=== PATIENT | female | born 1970 | race Caucasian/White ===

== ENCOUNTER 2016-05-28 19:59 | Emergency (ER) | payer OTHER ==
--- NOTE | 2016-05-28 23:10 | DIAGNOSTIC IMAGING REPORT ---
PROCEDURE: CTA THORAX WITH CONTRAST INDICATION: PULMONARY EMBOLUS TECHNIQUE: 96 ml of Isovue 370 was injected intravenously and axial images were obtained of the chest with 3D sagittal and coronal MIP reconstructions. COMPARISON: None. FINDINGS: Normal opacification of the pulmonary arterial tree without filling defect. There is a right IJ central venous catheter in place. The main pulmonary outflow tract is enlarged measuring 3.8 cm in transverse diameter. Thoracic aorta is normal caliber. The great vessels demonstrate a normal branching pattern. Heart size is normal. No pericardial effusion. Mild right hilar soft tissue thickening suggestive of adenopathy. No axillary, supraclavicular, or mediastinal adenopathy. No mediastinal masses. The esophagus is normal in caliber without hiatal hernia. There are surgical changes of a gastric bypass at the GE junction. The thyroid gland is normal. Moderate peribronchial thickening in the right hilum and right lower lobe. There are posterior right lower lobe pleural-based and subpleural rounded parenchymal nodular densities amidst diffuse patchy ground-glass opacity throughout the lower lobe parenchyma bilaterally, right much worse than left. No pleural effusion. The airway is patent and branches normally. Osseous structures are intact. 2 cm cystic structure in the right posterior lobe of the liver. Mild splenomegaly, 13.6 cm. Mildly increased amount of retained stool. IMPRESSION: 1. No pulmonary embolus. 2. Findings of right lower lobe bronchitis and bilateral pneumonitis suggestive of bronchopneumonia. Mild reactive right hilar adenopathy. 3. Enlarged main pulmonary outflow tract raising possibility of chronic pulmonary artery hypertension. Correlate clinically. 4. Prior gastric bypass. 5. Mild splenomegaly and indeterminate cystic structure in the right lobe of the liver. Correlate with the recent cross-sectional imaging. 6. Findings called to the emergency room.
--- NOTE | 2016-05-28 23:12 | DIAGNOSTIC IMAGING REPORT ---
PROCEDURE: XR CHEST 2 VIEW INDICATION: SHORTNESS OF BREATH TECHNIQUE: Two views. COMPARISON: None. FINDINGS: The cardiomediastinal contour and central vasculature are within normal limits. Right IJ Mediport in place. The lungs demonstrate mild right lower lobe peribronchial thickening and parenchymal irregularity along the right lung base without a large consolidation. Wispy strandy changes are also seen at the left lung base. The upper lungs are normally aerated. No effusion or pneumothorax. The visualized osseous structures are intact. Surgical clips in the gallbladder fossa. IMPRESSION: 1. Peribronchial thickening and minor right lower lung parenchymal changes. 2. Right Mediport.
--- NOTE | 2016-05-28 23:26 | ED CLINICAL REPORT ---
Clinical Report - Physicians/Mid Levels [facility] [address] [place] [address] 05/28/2016 20:01 Patient: RADHA CHAHAL Time Seen: 2029. Arrived- By private vehicle. Historian- patient. HISTORY OF PRESENT ILLNESS Chief Complaint: COUGH. No sore throat or nasal discharge. (Patient reports undergoing recent treatment for pneumonia, with 2 rounds of antibiotics, recently finished azithromycin 1 day previously, was previously seen at [place] about 2 weeks previously diagnosed with pneumonia, and consequently had a follow-up with her primary care provider, and was given additional antibiotics. The cough has persisted. Otherwise she has no arthralgias myalgias, fatigue or fevers. Nonproductive cough. No history of hemoptysis. Denies any history of PE or DVT. Patient is currently undergoing care for cancer, recent chemotherapy finished in February, awaiting radiation therapy within the next 1-2 weeks.). REVIEW OF SYSTEMS No vomiting or pedal edema. All systems otherwise negative, except as recorded above. PAST HISTORY Problems: Anemia. Back Pain. Anxiety Reaction. Depression. PTSD. Fibromyalgia. Sciatica. Herniated Disk. Non-Hodgkin's lymphoma (clinical). MRSA Infection [Resolved]. Additional Surgeries: Cholecystectomy. . Gastric Resection. Tubal Ligation. Medications: B-12 Oral. Multivitamins Oral. Iron Oral. Topiramate Oral 100 mg, 2x a day. ClonazePAM Oral 0.5 mg, 2x a day. TiZANidine HCl Oral 4 mg, 3x a day. Amitriptyline HCl Oral 100 mg, daily. FLUoxetine HCl Oral 60 mg, daily. Gabapentin Oral 800 mg, 3x a day. Naproxen Oral 500 mg, 2x a day. Allergies: Effexor. OxyContin. Trazodone . SOCIAL HISTORY Never smoker. No alcohol use or drug use. ADDITIONAL NOTES The nursing notes have been reviewed. PHYSICAL EXAM Vital Signs: 05/28/2016 20:10 BP: 144/112. HR: 73. RR: 20. O2 saturation: 100%. Temp: 98.3 F. Pain level now: 0/10. Appearance: Alert. No acute distress. ENT: Pharynx normal. Uvula midline. Neck: Normal inspection. No lymphadenopathy. CVS: Normal heart rate and rhythm. Heart sounds normal. No decreased pulses. Respiratory: No respiratory distress. Breath sounds normal. No accessory muscle use, splinting or decreased breath sounds. Abdomen: Soft. No abdominal tenderness or guarding. Skin: Normal skin color. Neuro: Oriented X 3. LABS, X-RAYS, AND EKG Chest X-ray: (IMPRESSION: 1. Peribronchial thickening and minor right lower lung parenchymal changes. 2. Right Mediport. Electronically Final signed by:Fabiola Goyal MD 05/28/2016 11:13:10 PM). Chest CT: (CTA IMPRESSION: 1. No pulmonary embolus. 2. Findings of right lower lobe bronchitis and bilateral pneumonitis suggestive of bronchopneumonia. Mild reactive right hilar adenopathy. 3. Enlarged main pulmonary outflow tract raising possibility of chronic pulmonary artery hypertension. Correlate clinically. 4. Prior gastric bypass. 5. Mild splenomegaly and indeterminate cystic structure in the right lobe of the liver. Correlate with the recent cross-sectional imaging. 6. Findings called to the emergency room. Electronically Final signed by:Fabiola Goyal MD 05/28/2016 11:11:19 PM). Laboratory Tests: CBC w Diff: (YISSEL: 05/28/2016 21:10) ( MsgRcvd 05/28/2016 21:22) Final results Test Result Flag Units (Reference) WHITE BLOOD COUNT 6.2 K/uL (4.5-11.5) RED BLOOD COUNT 2.96 L M/uL (4.00-5.20) HEMOGLOBIN 8.9 L gm/dL (12.0-16.0) HEMATOCRIT 27.1 L % (36.0-46.0) MEAN CELL VOLUME 92 fL (80-100) MEAN CORPUSCULAR HGB 30 pg (26-34) MEAN CORPUSCULAR HGB CONC 33 g/dL (31-37) RED CELL DISTRIBUTION WIDTH 14.9 H % (11.6-14.8) PLATELET COUNT 323 K/uL (150-400) NEUTROPHIL % 64.5 % (50-75) LYMPH % 20.0 L % (25-40) MONO % 8.6 % (3-14) EOSINOPHIL % 6.3 H % (0-4) BASOPHIL % 0.6 % (0-2) [id number]: (YISSEL: 05/28/2016 21:10) ( MsgRcvd 05/28/2016 21:29) Final results Test Result Flag Units (Reference) D-DIMER QUANTITATIVE 0.58 H ug/mLFEU (0.27-0.52) The primary value of this quantitative assay relates toits negative predictive value (i.e. exclusion) of pulmonaryembolism/deep vein thrombosis/DIC.Elevated levels of d-dimer may also occur with:, age, cancer, inflammation, liver disease,post-op, infection, hematoma, coronary disease, peripheralarteriopathy, bleeding disorders and thrombolytic treatment.Results should be correlated with other clinical andradiological data.Testing Methodology: Latex Immunoassay CMP: (YISSEL: 05/28/2016 21:10) ( MsgRcvd 05/28/2016 21:37) Final results Test Result Flag Units (Reference) GLUCOSE 95 mg/dL (70-110) BUN 28 H mg/dL (7-18) CREATININE 0.8 mg/dL (0.6-1.3) Estimated GFR >60 mL/min Estimated GFR- >60 mL/min Note: Persistent reduction over 3 months in eGFR<60 mL/min/1.73 m2 defines CKD. Patients with eGFR values>=60 mL/min/1.73 m2 may also have CKD if evidence ofpersistent proteinuria. Additional information may be foundat [email or web address].org. SODIUM 143 mmol/L (136-145) POTASSIUM 3.8 mmol/L (3.5-5.1) CHLORIDE 105 mmol/L (98-107) CARBON DIOXIDE 26 mmol/L (21-32) CALCIUM 8.7 mg/dL (8.5-10.1) TOTAL PROTEIN 7.2 g/dL (6.4-8.2) ALBUMIN 3.1 L g/dL (3.3-5.0) BILIRUBIN, TOTAL 0.2 mg/dL (0.0-1.0) ALKALINE PHOSPHATASE 125 H U/L (46-116) AST (SGOT) 28 U/L (15-37) ALT (SGPT) 34 U/L (12-78) . PROGRESS AND PROCEDURES Course of Care: here in the ER is afebrile, with history of anemia, hemoglobin 8.9. Previous records reviewed from [place]. she had right lower lobe pneumonia at that time, was treated with moxiflocxacin on 05/15/2016 , hgb 9.7. NO active signs of bleeding. Pt stable. Discussed case with DR. Cervantes, pt with slight elevation of d-dimer, with ca, will obtain cta to ensure no PE. nonseptic and at this time he be discharged to home care. Patient understands plan. No indication for acute further antibiotic management. 05/28/2016 23:36 BP: 129/76. 05/28/2016 22:48 BP: 131/71. HR: 64. RR: 19. O2 saturation: 96%. Patient is stable. Symptoms better. Differential Diagnosis: I considered viral bronchitis, laryngotracheobronchitis, viral pneumonia, bacterial bronchitis, bacterial pneumonia, mycoplasmal bronchitis, mycoplasmal pneumonia, chlamydial bronchitis, chlamydial pneumonia, bronchospasm, allergic bronchospasm, irritant bronchospasm, lung cancer, pulmonary embolism, adverse drug reaction and psychogenic etiology as a possible cause of cough in this patient. This is a partial list of diagnoses considered. Disposition: Discharged. Condition: good. CLINICAL IMPRESSION Acute bronchitis. INSTRUCTIONS Drink plenty of fluids. Prescription Medications: Robitussin A-C cough syrup take one (1) teaspoon orally every 6 hours as needed for cough for 3 days. Dispense sixty (60) mL. No refill. Substitution is permissible. Tylenol with Codeine Liquid, 12 mg / 120 mg / 5 mL: take 1-2 teaspoons every 6 hours. Dispense ninety (90) mL. One refill. Substitution is permissible. Follow-up: Follow up with your doctor in three. Understanding of the discharge instructions verbalized by patient. (Electronically signed by Alida Capps P.A.-C 05/29/2016 0:46)
--- NOTE | 2016-05-28 23:26 | ED ORDER SUMMARY ---
..... Patient: RADHA CHAHAL OrderSheet [facility] VisitID: [id number] [place] [address] 45y, F Registration Date/Time: 05/28/2016 ORDER SHEET Weight: 113.3 kg (stated) Allergies: OxyContin, Trazodone , Effexor GENERAL ORDERS: Chest 2V Urgent (20:40 05/28/2016 EKoroleva P.A.-C) (Ack 20:42 SRedmond) (20:51 DDavis R.N.) CBC w Diff Urgent (20:41 05/28/2016 EKoroleva P.A.-C) (Ack 20:42 SRedmond) (20:51 DDavis R.N.) CMP Urgent (20:41 05/28/2016 EKoroleva P.A.-C) (Ack 20:42 SRedmond) (20:51 DDavis R.N.) D-Dimer Urgent (20:41 05/28/2016 EKoroleva P.A.-C) (Ack 20:42 SRedmond) (20:51 DDavis R.N.) CTA Thorax w Cont (No) (see lab) Urgent (21:52 05/28/2016 EKoroleva P.A.-C) (Ack 21:53 SRedmond) (22:19 AMcQuoid ER Tech1) MEDICATION ORDERS: IV FLUIDS: IV NS : initial bolus 1000 mL (1000 mL/hr), then 500 mL/hr for X1 (NOW); Tae (20:40 05/28/2016 EKoroleva P.A.-C) (21:17 DDavis R.N.) Heparin Lock Flush IV 10 unit/mL (NOW) (23:33 05/28/2016 HSoule per protocol) (Ack 23:34 HSoule) (Cancelled: Other23:34 LSullivan R.N.) Heparin Lock Flush IV 100 unit/mL (NOW) (23:35 05/28/2016 LSullivan R.N. per protocol) (23:42 DDavis R.N.) ORDER SHEET NOTES: [Electronically signed by Drew Brothers R.N. (23:44 05/28/2016)] [Electronically signed by Alida Capps P.A.-C (00:46 05/29/2016)] [Electronically locked/signed by Drew Brothers R.N. (23:44 05/28/2016)]
--- NOTE | 2016-05-28 23:26 | ED NURSING NOTES ---
Clinical Report - Nurses [facility] [address] [place] [address] 05/28/2016 20:01 Patient: RADHA CHAHAL TRIAGE Triage time 20:17. Acuity: LEVEL 3. Chief Complaint: (cough and increasing SOB for 2 weeks). --20:22 Drew Brothers R.N. 20:10 05/28/16. BP: 144/112. HR: 73. RR: 20. O2 saturation: 100% on room air. Temp: 98.3 F (oral). Pain level now: 0/10. --20:22 Drew Brothers R.N. Weight: 113.3 kg stated. Height/Length: 67 inches Per Patient. BMI: 39.2. --20:10 Drew Brothers R.N. Medications Naproxen Oral 500 mg, 2x a day. --20:14 Drew Brothers R.N. Gabapentin Oral 800 mg, 3x a day. --20:15 Drew Brothers R.N. FLUoxetine HCl Oral 60 mg, daily. --20:15 Drew Brothers R.N. Amitriptyline HCl Oral 100 mg, daily. --20:16 Drew Brothers R.N. TiZANidine HCl Oral 4 mg, 3x a day. --20:16 Drew Brothers R.N. ClonazePAM Oral 0.5 mg, 2x a day. --20:16 Drew Brothers R.N. Topiramate Oral 100 mg, 2x a day. --20:16 Drew Brothers R.N. Iron Oral. --20:17 Drew Brothers R.N. Multivitamins Oral. --20:17 Drew Brothers R.N. B-12 Oral. --20:17 Drew Brothers R.N. Allergies OxyContin. --20:11 Drew Brothers R.N. Trazodone . --20:11 Drew Brothers R.N. Effexor. --20:11 Drew Brothers R.N. History Arrived by private vehicle. Historian: patient. Accompanied by family. Primary physician (Dr. Sarah Estevez). Onset. (2 weeks ago). She has had a cough. Treatment [employer]: (Abx as prescribed). PAST MEDICAL HX: No history of diabetes mellitus, hypertension, heart disease or lung disease. Denies current . SOCIAL HX: Never smoker. No alcohol use or drug use. The patient was exposed to MRSA. Has had cough. Mask placed on patient. FALL RISK ASSESSMENT: Fall risk assessment completed. No fall risk identified. NUTRITIONAL RISK ASSESSMENT: The nutritional risk assessment revealed no deficiencies. FUNCTIONAL ASSESSMENT: Functional assessment: no impairments noted. LEARNING NEEDS ASSESSMENT: The learning needs assessment revealed no barriers. --20:22 Drew Brothers R.N. PROBLEMS: Anemia. Back Pain. Anxiety Reaction. Depression. PTSD. Fibromyalgia. Sciatica. Herniated Disk. Non-Hodgkin's lymphoma (clinical). --20:13 Drew Brothers R.N. MRSA Infection [Resolved]. --20:21 Drew Brothers R.N. ADDITIONAL SURGERIES: Cholecystectomy. . Gastric Resection. Tubal Ligation. --20:14 Drew Brothers R.N. Interventions ID and allergy band on patient. To treatment room. --20:22 Drew Brothers R.N. PHYSICAL ASSESSMENT ( pt has port-a-cath in right anterior chest). GENERAL / NEURO / PSYCH: Alert. Oriented X 4. Appears in no acute distress. HEENT: No facial asymmetry noted. Mucous membranes are pink. RESPIRATORY: Mild respiratory distress. Respirations not labored. The patient can speak in full sentences. Chest nontender. ( diminished breath sounds). CVS: Capillary refill less than 2 seconds. Pulses within normal limits. GI / : Abdomen soft and normal bowel sounds. SKIN: Skin intact. Skin is warm and dry. --20:23 Drew Brothers R.N. ( Patient states that she was diagnosed with Pnuemonia 2 weeks ago at her doctor's office, and that she was seen again 1 week ago at her doctor for the same. She states having taken 1 different prescriptions of abx, and states that her cough has worsened since her last Dr visit. she states that the cough is occasionally productive, color of sputum unknown. Denies pain. Denies having other symptoms.). --20:33 Drew Brothers R.N. NURSING PROGRESS NOTES Two patient identifiers checked. Call light placed in reach. Side rails up x 1. Bed placed in lowest position. Brakes of bed on. Patient ready for evaluation- chart flagged. Patient waiting for evaluation. --20:24 Drew Brothers R.N. 21:17 05/28/2016 Site #1 started via IV in the right; one attempt. Blood drawn: rainbow set. Saline lock flushed with saline (port a cath, right anterior chest). --21:17 Drew Brothers R.N. 21:17 05/28/2016 Started bag #1 1000 mL IV Fluids IV NS (Saline); bolus of 1000 mL over 1 hour(s) via site #1 --21:17 Drew Brothers R.N. ( POrt was accessed using sterile technique and labs drawn and sent to lab. Patient calm.). --21:25 Drew Brothers R.N. 22:48 05/28/16. BP: 131/71. HR: 64. RR: 19 (regular and unlabored). O2 saturation: 96% on room air. --22:48 Drew Brothers R.N. ( Rounding on patient. informed them of expected result wait times and performed rounding.). --22:49 Drew Brothers R.N. 23:36 05/28/2016 HEPARIN LOCK FLUSH (Heparin (Porcine) Lock Flush) IVP 100 unit given. via site #1. Allergies verified and confirmed 5 rights. IV patency established site checked: no pain, redness, or swelling. IVP given by RN. --23:42 Drew Brothers R.N. DISPOSITION / DISCHARGE 23:38 05/28/2016 Site #1 removed upon discharge. Bandaid applied. --23:43 Drew Brothers R.N. Condition at departure: stable. The goals identified in the patient's plan of care were met. No learning barriers present. Discharge instructions provided and reviewed with the patient. Reviewed medication(s). Reviewed referrals. Patient verbalized understanding. Written instructions provided in Latvian. The patient was discharged home and accompanied by head custodian. She left the Emergency Department ambulatory and via private vehicle. Posting Clerk driving. --23:43 Drew Brothers R.N. 23:36 05/28/16. BP: 129/76. --23:43 Drew Brothers R.N. 23:36 discharge. --23:44 Drew Brothers R.N. Locked/Released at 05/28/2016 23:44 by Drew Brothers R.N.
--- NOTE | 2016-05-28 23:26 | ED NURSING NOTES ---
Clinical Report - Nurses [facility] [address] [place] [address] 05/28/2016 20:01 Patient: RADHA CHAHAL TRIAGE Triage time 20:17. Acuity: LEVEL 3. Chief Complaint: (cough and increasing SOB for 2 weeks). --20:22 Drew Brothers R.N. 20:10 05/28/16. BP: 144/112. HR: 73. RR: 20. O2 saturation: 100% on room air. Temp: 98.3 F (oral). Pain level now: 0/10. --20:22 Drew Brothers R.N. Weight: 113.3 kg stated. Height/Length: 67 inches Per Patient. BMI: 39.2. --20:10 Drew Brothers R.N. Medications Naproxen Oral 500 mg, 2x a day. --20:14 Drew Brothers R.N. Gabapentin Oral 800 mg, 3x a day. --20:15 Drew Brothers R.N. FLUoxetine HCl Oral 60 mg, daily. --20:15 Drew Brothers R.N. Amitriptyline HCl Oral 100 mg, daily. --20:16 Drew Brothers R.N. TiZANidine HCl Oral 4 mg, 3x a day. --20:16 Drew Brothers R.N. ClonazePAM Oral 0.5 mg, 2x a day. --20:16 Drew Brothers R.N. Topiramate Oral 100 mg, 2x a day. --20:16 Drew Brothers R.N. Iron Oral. --20:17 Drew Brothers R.N. Multivitamins Oral. --20:17 Drew Brothers R.N. B-12 Oral. --20:17 Drew Brothers R.N. Allergies OxyContin. --20:11 Drew Brothers R.N. Trazodone . --20:11 Drew Brothers R.N. Effexor. --20:11 Drew Brothers R.N. History Arrived by private vehicle. Historian: patient. Accompanied by family. Primary physician (Dr. Sarah Estevez). Onset. (2 weeks ago). She has had a cough. 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 PAST MEDICAL HX: No history of diabetes mellitus, hypertension, heart disease or lung disease. Denies current . SOCIAL HX: Never smoker. No alcohol use or drug use. The patient was exposed to MRSA. Has had cough. Mask placed on patient. FALL RISK ASSESSMENT: Fall risk assessment completed. No fall risk identified. NUTRITIONAL RISK ASSESSMENT: The nutritional risk assessment revealed no deficiencies. FUNCTIONAL ASSESSMENT: Functional assessment: no impairments noted. LEARNING NEEDS ASSESSMENT: The learning needs assessment revealed no barriers. --20:22 Drew Brothers R.N. PROBLEMS: Anemia. Back Pain. Anxiety Reaction. Depression. PTSD. Fibromyalgia. Sciatica. Herniated Disk. Non-Hodgkin's lymphoma (clinical). --20:13 Drew Brothers R.N. MRSA Infection [Resolved]. --20:21 Drew Brothers R.N. ADDITIONAL SURGERIES: Cholecystectomy. . Gastric Resection. Tubal Ligation. --20:14 Drew Brothers R.N. Interventions ID and allergy band on patient. To treatment room. --20:22 Drew Brothers R.N. PHYSICAL ASSESSMENT ( pt has port-a-cath in right anterior chest). GENERAL / NEURO / PSYCH: Alert. Oriented X 4. Appears in no acute distress. HEENT: No facial asymmetry noted. Mucous membranes are pink. RESPIRATORY: Mild respiratory distress. Respirations not labored. The patient can speak in full sentences. Chest nontender. ( diminished breath sounds). CVS: Capillary refill less than 2 seconds. Pulses within normal limits. GI / : Abdomen soft and normal bowel sounds. SKIN: Skin intact. Skin is warm and dry. --20:23 Drew Brothers R.N. ( Patient states that she was diagnosed with Pnuemonia 2 weeks ago at her doctor's office, and that she was seen again 1 week ago at her doctor for the same. She states having taken 1 different prescriptions of abx, and states that her cough has worsened since her last Dr visit. she states that the cough is occasionally productive, color of sputum unknown. Denies pain. Denies having other symptoms.). --20:33 Drew Brothers R.N. NURSING PROGRESS NOTES Two patient identifiers checked. Call light placed in reach. Side rails up x 1. Bed placed in lowest position. Brakes of bed on. Patient ready for evaluation- chart flagged. Patient waiting for evaluation. --20:24 Drew Brothers R.N. 21:17 05/28/2016 Site #1 started via IV in the right; one attempt. Blood drawn: rainbow set. Saline lock flushed with saline (port a cath, right anterior chest). --21:17 Drew Brothers R.N. 21:17 05/28/2016 Started bag #1 1000 mL IV Fluids IV NS (Saline); bolus of 1000 mL over 1 hour(s) via site #1 --21:17 Drew Brothers R.N. ( POrt was accessed using sterile technique and labs drawn and sent to lab. Patient calm.). --21:25 Drew Brothers R.N. 22:48 05/28/16. BP: 131/71. HR: 64. RR: 19 (regular and unlabored). O2 saturation: 96% on room air. --22:48 Drew Brothers R.N. ( Rounding on patient. informed them of expected result wait times and performed rounding.). --22:49 Drew Brothers R.N. 23:36 05/28/2016 HEPARIN LOCK FLUSH (Heparin (Porcine) Lock Flush) IVP 100 unit given. via site #1. Allergies verified and confirmed 5 rights. IV patency established site checked: no pain, redness, or swelling. IVP given by RN. --23:42 Drew Brothers R.N. DISPOSITION / DISCHARGE 23:38 05/28/2016 Site #1 removed upon discharge. Bandaid applied. --23:43 Drew Brothers R.N. Condition at departure: stable. The goals identified in the patient's plan of care were met. No learning barriers present. Discharge instructions provided and reviewed with the patient. Reviewed medication(s). Reviewed referrals. Patient verbalized understanding. Written instructions provided in Kyrgyz. The patient was discharged home and accompanied by home care scheduler. She left the Emergency Department ambulatory and via private vehicle. Loan Services Professional driving. --23:43 Drew Brothers R.N. 23:36 05/28/16. BP: 129/76. --23:43 Drew Brothers R.N. 23:36 discharge. --23:44 Drew Brothers R.N. Locked/Released at 05/28/2016 23:44 by Drew Brothers R.N.
--- NOTE | 2016-05-28 23:26 | ED ORDER SUMMARY ---
..... Patient: RADHA CHAHAL OrderSheet [facility] VisitID: [id number] [place] [address] 45y, F Registration Date/Time: 05/28/2016 ORDER SHEET Weight: 113.3 kg (stated) Allergies: OxyContin, Trazodone , Effexor GENERAL ORDERS: Chest 2V Urgent (20:40 05/28/2016 EKoroleva P.A.-C) (Ack 20:42 SRedmond) (20:51 DDavis R.N.) CBC w Diff Urgent (20:41 05/28/2016 EKoroleva P.A.-C) (Ack 20:42 SRedmond) (20:51 DDavis R.N.) CMP Urgent (20:41 05/28/2016 EKoroleva P.A.-C) (Ack 20:42 SRedmond) (20:51 DDavis R.N.) D-Dimer Urgent (20:41 05/28/2016 EKoroleva P.A.-C) (Ack 20:42 SRedmond) (20:51 DDavis R.N.) CTA Thorax w Cont (No) (see lab) Urgent (21:52 05/28/2016 EKoroleva P.A.-C) (Ack 21:53 SRedmond) (22:19 AMcQuoid ER Tech1) MEDICATION ORDERS: IV FLUIDS: IV NS : initial bolus 1000 mL (1000 mL/hr), then 500 mL/hr for X1 (NOW); Tae (20:40 05/28/2016 EKoroleva P.A.-C) (21:17 DDavis R.N.) Heparin Lock Flush IV 10 unit/mL (NOW) (23:33 05/28/2016 HSoule per protocol) (Ack 23:34 HSoule) (Cancelled: Other23:34 LSullivan R.N.) Heparin Lock Flush IV 100 unit/mL (NOW) (23:35 05/28/2016 LSullivan R.N. per protocol) (23:42 DDavis R.N.) ORDER SHEET NOTES: [Electronically signed by Drew Brothers R.N. (23:44 05/28/2016)] [Electronically signed by Alida Capps P.A.-C (00:46 05/29/2016)] [Electronically locked/signed by Drew Brothers R.N. (23:44 05/28/2016)]
--- NOTE | 2016-05-29 00:47 | ED MED RECONCILIATION SUMMARY ---
Patient: RADHA CHAHAL Medication Reconciliation Report [facility] VisitID: [id number] [address] [place] [address] 45y, F Registration Date/Time: 05/28/2016 Weight: 113.3 kg Height/Length: 67 in. BMI: 39.2 ALLERGIES: Effexor, OxyContin, Trazodone The patient's Home Medications are listed below: THE FOLLOWING MEDICATIONS NEED TO BE RECONCILED: Amitriptyline HCl Oral 100 mg, daily B-12 Oral ClonazePAM Oral 0.5 mg, 2x a day FLUoxetine HCl Oral 60 mg, daily Gabapentin Oral 800 mg, 3x a day Iron Oral Multivitamins Oral Naproxen Oral 500 mg, 2x a day TiZANidine HCl Oral 4 mg, 3x a day Topiramate Oral 100 mg, 2x a day The source(s) of the original Home Medication information: Not obtained. The following Medications were given to the patient in the Emergency Department: IV NS IV Fluids bolus 1000 mL over 1 hour(s), administered: 05/28/2016 9:17:00 PM HEPARIN LOCK FLUSH [IVP] IVP 100 unit, administered: 05/28/2016 11:36:00 PM The following Medications were prescribed to the patient: Robitussin A-C cough syrup take one (1) teaspoon orally every 6 hours as needed for cough for 3 days. Dispense sixty (60) mL. No refill. Substitution is permissible. -- Alida Capps, P.A.-Sheila Tylenol with Codeine Liquid, 12 mg / 120 mg / 5 mL: take 1-2 teaspoons every 6 hours. Dispense ninety (90) mL. One refill. Substitution is permissible. -- Alida Capps, P.A.-C
--- NOTE | 2016-05-29 00:47 | ED DISCHARGE INSTRUCTIONS ---
Patient: RADHA CHAHAL General Instructions [facility] VisitID: [id number] [place] [address] 45y, F Registration Date/Time: 05/28/2016 Acute bronchitis. INSTRUCTIONS Drink plenty of fluids. Prescription Medications: Robitussin A-C cough syrup take one (1) teaspoon orally every 6 hours as needed for cough for 3 days. Dispense sixty (60) mL. No refill. Substitution is permissible. Tylenol with Codeine Liquid, 12 mg / 120 mg / 5 mL: take 1-2 teaspoons every 6 hours. Dispense ninety (90) mL. One refill. Substitution is permissible. Follow-up: Follow up with your doctor in three. Understanding of the discharge instructions verbalized by patient. ADDITIONAL INFORMATION Bronchitis, Viral (Adult: No Abx) You have a viral bronchitis. This illness is contagious during the first few days and is spread through the air by coughing and sneezing, or by direct contact (touching the sick person and then touching your own eyes, nose, or mouth). Most viral illnesses resolve within 10-14 days with rest and simple home remedies, although they may sometimes last for several weeks. Antibiotics will not kill a virus and are generally not prescribed for this condition. Home Care: If symptoms are severe, rest at home for the first 2-3 days. When resuming activity, don't let yourself become overly tired. Do not smoke and avoid the smoke of others. You may use acetaminophen (Tylenol) or ibuprofen (Motrin, Advil) to control fever or pain, unless another pain medicine was prescribed. [NOTE: If you have chronic liver or kidney disease or ever had a stomach ulcer or GI bleeding, talk with your doctor before using these medicines.] (Aspirin should never be used in anyone under 18 years of age who is ill with a fever. It may cause severe liver damage.) Your appetite may be poor so a light diet is fine. Avoid dehydration by drinking 6-8 glasses of fluids per day (water, sport drinks such as Gatorade, juices, tea, soup, etc.). Extra fluids will help loosen secretions in the nose and lung. Ztkp-kmg-bddmgnv cold medicines will not shorten the length of the illness, but may be helpful for cough (Robitussin DM), sore throat (Chloraseptic lozenges or spray), nasal and sinus congestion (Actifed or Sudafed). [NOTE: Do not use decongestants if you have high blood pressure.] Follow Up with your doctor or as directed by our staff if you are not improving over the next week. NOTE: If you are age 65 or older, or if you have chronic asthma or COPD, we recommend a PNEUMOCOCCAL VACCINATION every five years and a yearly INFLUENZAVACCINATION (FLU-SHOT) every . Ask your doctor about this. If you had an X-ray, a radiologist will review it. You will be notified of any new findings that may affect your care.] Get Prompt Medical Attention if any of the following occur: Fever over 100.4F (38.0C) for more than three days Trouble breathing, wheezing or pain with breathing Coughing up blood or increased amounts of colored sputum Weakness, drowsiness, headache, facial pain, ear pain or a stiff neck Bronchitis With Wheezing (Viral Or Bacterial: Adult) Bronchitis is an infection of the air passages. It often occurs during the common cold and is usually caused by a virus. Symptoms include cough with mucus (phlegm) and low-grade fever. If there is a lot of inflammation, air flow is restricted. The air passages may also go into spasm, especially if you are an asthmatic. This causes wheezing and difficulty breathing even in persons who do not have asthma. Bronchitis usually lasts 7-14 days. The wheezing should improve with treatment during the first week. An inhaler is often prescribed to relax the air passages and stop wheezing. Antibiotics will be prescribed if your doctor thinks there is also a secondary bacterial infection. Home Care: If symptoms are severe, rest at home for the first 2-3 days. When resuming activity, don't let yourself become overly tired. Do not smoke and avoid exposure to the smoke of others. You may use acetaminophen (Tylenol) or ibuprofen (Motrin, Advil) to control fever, unless another medicine was prescribed. [NOTE: If you have chronic liver or kidney disease or ever had a stomach ulcer or GI bleeding, talk with your doctor before using these medicines.] (Aspirin should never be used in anyone under 18 years of age who is ill with a fever. It may cause severe liver damage.) Your appetite may be poor so a light diet is fine. Avoid dehydration by drinking 6-8 glasses of fluids per day (water, soft, drinks, juices, tea, soup, etc.). Extra fluids will help loosen secretions in the lungs. Fxtd-des-ueikywz cough medicines that containdextromethorphan(such as Robitussin DM) and decongestants (Actifed or Sudafed) may help relieve cough and congestion. [NOTE: Do not use decongestants if you have high blood pressure.] If you were given an inhaler, use it exactly as directed. If you need to use it more often than prescribed, your condition may be worsening. Contact your doctor or this facility. If prescribed, finish all antibiotic medicine, even if you are feeling better after only a few days. Follow Up With Your Doctor Or As Directed If You Are Not Starting To Feel Better After Three Days. [NOTE: If you are age 65 or older, or if you have chronic asthma or COPD, we recommend a pneumococcal vaccination every five years and a yearly influenza vaccination (flu shot) every . Ask your doctor about this. If you had an x-ray or EKG (electrocardiogram), it will be reviewed by a specialist. You will be notified of any new findings that may affect your care.] Get Prompt Medical Attention If Any Of The Following Occur: Increased wheezing, shortness of breath or pain with breathing Fever of 100.4F (38C) oral or higher, not better with fever medication Coughing up blood or increasing amounts of colored sputum Weakness, drowsiness, headache, facial pain, ear pain or a stiff neck Lower leg swelling, tenderness, redness or pain Acetaminophen, Codeine Phosphate Oral solution What is this medicine? ACETAMINOPHEN; CODEINE (a set a LIBERTY fatoumata fen; KOE vlad) is a pain reliever. It is used to treat mild to moderate pain. How should I use this medicine? Take this medicine by mouth. Use a specially marked spoon or dropper to measure your dose. Ask your pharmacist if you do not have a dropper or measuring spoon. Do not use a household spoon. Follow the directions on the prescription label. If the medicine upsets your stomach, take the medicine with food or milk. Do not take more than you are told to take. Talk to your enrobing machine corder regarding the use of this medicine in children. Special care may be needed. What side effects may I notice from receiving this medicine? Side effects that you should report to your doctor or health memory care program director as soon as possible: allergic reactions like skin rash, itching or hives, swelling of the face, lips, or tongue breathing problems confusion feeling faint or lightheaded, falls stomach pain unusual bleeding or bruising unusually weak or tired yellowing of the eyes, skin Side effects that usually do not require medical attention (report to your doctor or health memory care program director if they continue or are bothersome): nausea, vomiting What may interact with this medicine? alcohol antihistamines carbamazepine isoniazid medicines for depression, anxiety, or psychotic disturbances medicines for sleep muscle relaxants naltrexone narcotic medicines (opiates) for pain phenobarbital, phenytoin, and fosphenytoin tramadol What if I miss a dose? If you miss a dose, take it as soon as you can. If it is almost time for your next dose, take only that dose. Do not take double or extra doses. Where should I keep my medicine? Keep out of the reach of children. This medicine can be abused. Keep your medicine in a safe place to protect it from theft. Do not share this medicine with anyone. Selling or giving away this medicine is dangerous and against the law. Store at room temperature between 15 and 30 degrees C (59 and 86 degrees F). Protect from light. Keep container tightly closed. Throw away any unused medicine after the expiration date. Discard unused medicine and used packaging carefully. Pets and children can be harmed if they find used or lost packages. What should I tell my health care provider before I take this medicine? They need to know if you have any of these conditions: brain tumor Crohn's disease, inflammatory bowel disease, or ulcerative colitis drink more than 3 alcohol-containing drinks per day drug abuse or addiction head injury heart or circulation problems kidney disease or problems going to the bathroom liver disease lung disease, asthma, or breathing problems an unusual or allergic reaction to acetaminophen, codeine, parabens, other medicines, foods, dyes, or preservatives or trying to get breast-feeding What should I watch for while using this medicine? Tell your doctor or health memory care program director if your pain does not go away, if it gets worse, or if you have new or a different type of pain. You may develop tolerance to the medicine. Tolerance means that you will need a higher dose of the medicine for pain relief. Tolerance is normal and is expected if you take the medicine for a long time. Do not suddenly stop taking your medicine because you may develop a severe reaction. Your body becomes used to the medicine. This does NOT mean you are addicted. Addiction is a behavior related to getting and using a drug for a non-medical reason. If you have pain, you have a medical reason to take pain medicine. Your doctor will tell you how much medicine to take. If your doctor wants you to stop the medicine, the dose will be slowly lowered over time to avoid any side effects. You may get drowsy or dizzy when you first start taking the medicine or change doses. Do not drive, use machinery, or do anything that may be dangerous until you know how the medicine affects you. Stand or sit up slowly. There are different types of narcotic medicines (opiates) for pain. If you take more than one type at the same time, you may have more side effects. Give your health care provider a list of all medicines you use. Your doctor will tell you how much medicine to take. Do not take more medicine than directed. Call emergency for help if you have problems breathing. The medicine will cause constipation. Try to have a bowel movement at least every 2 to 3 days. If you do not have a bowel movement for 3 days, call your doctor or health memory care program director. Too much acetaminophen can be very dangerous. Do not take Tylenol (acetaminophen) or medicines that contain acetaminophen with this medicine. Many non-prescription medicines contain acetaminophen. Always read the labels carefully. Immediately call your physician or get emergency help if you are breast-feeding and your baby is sleepier than usual, is limp, or has difficulty or breathing. You have been given the following additional information: Bronchitis, No Antibiotic (Adult) Bronchitis With Wheezing (Adult) Acetaminophen, Codeine Phosphate Oral solution (Electronically signed by Alida Capps P.A.-C 05/29/2016 0:46)
--- NOTE | 2016-05-29 00:47 | ED MAR SUMMARY ---
..... Medication Administration Record [facility] [address] [place] [address] Patient: RADHA CHAHAL Visit ID: [id number] 45y, F Weight: 113.3 kg Height/Length: 67 in BMI: 39.2 ALLERGIES: Effexor, Trazodone , OxyContin Start 21:17 05/28/2016 Drew Brothers R.N. Medication Administered: IV NS (SALINE), Dose: IV Fluids, Bolus: 1000 mL over 1 hour(s), Dispensed: 1000 mL bag, Site: #1 right. Medication Ordered: IV NS : initial bolus 1000 mL (1000 mL/hr), then 500 mL/hr for X1 (NOW); Tae. Given 23:36 05/28/2016 Drew Brothers R.N. Medication Administered: HEPARIN LOCK FLUSH [IVP] (HEPARIN (PORCINE) LOCK FLUSH), Dose: 100 unit IVP, Site: #1 right. Medication Ordered: Heparin Lock Flush IV 100 unit/mL (NOW).
--- NOTE | 2016-05-29 00:47 | ED MAR SUMMARY ---
..... Medication Administration Record [facility] [address] [place] [address] Patient: RADHA CHAHAL Visit ID: [id number] 45y, F Weight: 113.3 kg Height/Length: 67 in BMI: 39.2 ALLERGIES: Effexor, Trazodone , OxyContin Start 21:17 05/28/2016 Drew Brothers R.N. Medication Administered: IV NS (SALINE), Dose: IV Fluids, Bolus: 1000 mL over 1 hour(s), Dispensed: 1000 mL bag, Site: #1 right. Medication Ordered: IV NS : initial bolus 1000 mL (1000 mL/hr), then 500 mL/hr for X1 (NOW); Tae. Given 23:36 05/28/2016 Drew Brothers R.N. Medication Administered: HEPARIN LOCK FLUSH [IVP] (HEPARIN (PORCINE) LOCK FLUSH), Dose: 100 unit IVP, Site: #1 right. Medication Ordered: Heparin Lock Flush IV 100 unit/mL (NOW).
--- NOTE | 2016-05-29 00:47 | ED MED RECONCILIATION SUMMARY ---
Patient: RADHA CHAHAL Medication Reconciliation Report [facility] VisitID: [id number] [address] [place] [address] 45y, F Registration Date/Time: 05/28/2016 Weight: 113.3 kg Height/Length: 67 in. BMI: 39.2 ALLERGIES: Effexor, OxyContin, Trazodone The patient's Home Medications are listed below: THE FOLLOWING MEDICATIONS NEED TO BE RECONCILED: Amitriptyline HCl Oral 100 mg, daily B-12 Oral ClonazePAM Oral 0.5 mg, 2x a day FLUoxetine HCl Oral 60 mg, daily Gabapentin Oral 800 mg, 3x a day Iron Oral Multivitamins Oral Naproxen Oral 500 mg, 2x a day TiZANidine HCl Oral 4 mg, 3x a day Topiramate Oral 100 mg, 2x a day The source(s) of the original Home Medication information: Not obtained. The following Medications were given to the patient in the Emergency Department: IV NS IV Fluids bolus 1000 mL over 1 hour(s), administered: 05/28/2016 9:17:00 PM HEPARIN LOCK FLUSH [IVP] IVP 100 unit, administered: 05/28/2016 11:36:00 PM The following Medications were prescribed to the patient: Robitussin A-C cough syrup take one (1) teaspoon orally every 6 hours as needed for cough for 3 days. Dispense sixty (60) mL. No refill. Substitution is permissible. -- Alida Capps, P.A.-Sheila Tylenol with Codeine Liquid, 12 mg / 120 mg / 5 mL: take 1-2 teaspoons every 6 hours. Dispense ninety (90) mL. One refill. Substitution is permissible. -- Alida Capps, P.A.-C
== END 2016-05-28 23:30 | disposition home or self-care (01) ==
LOC: ED SRH 19:59
DX: J20.9 Acute bronchitis, unspecified (principal); Z79.899 Other long term (current) drug therapy; Z88.8 Allergy status to other drugs, medicaments and biological substances; Z88.5 Allergy status to narcotic agent
CPT/HCPCS: 83498; 90100; 91556; 95059